=== PATIENT | female | born 1955 | race Caucasian/White ===

== ENCOUNTER → 2018-08-20 | Outpatient (CLI) | payer OTHER ==
--- NOTE | 2018-08-20 08:06 | EKG ---
[address] [address] ELECTROCARDIOGRAM REPORT Name: CESARCOLTON WARNER Room #: REG CLI [facility] [id number] ������������������ Admission: 08/20/18 ������������������ Attend Phys: Karan Godoy MD Discharge: ������������������ Date of : 51 Report #: [id number] ����������������������������������������������������������������� [id number] THIS REPORT FOR: //name// [facility] Test Date: 2018-08-20 Test Time: 07:06:18 Pat Name: COLTON GUERRERO Department: Room: Gender: F Beck Operator: BORA : 1955 Requested By: Karan Godoy Order Number: [id number] MD: Luis Quesada Measurements Intervals [place] Rate: 64 P: 52 SC: 182 QRS: 39 QRSD: 89 T: 23 QT: 375 QTc: 387 Interpretive Statements Sinus rhythm Borderline low voltage, extremity leads Minimal ST elevation, anterolateral leads No previous ECG available for comparison Electronically Signed On 08-20-2018 8:06:44 CDT by Luis Quesada [email or web address] ��������������������������������������������� <ELECTRONICALLY SIGNED> ���������������������������������������� By: Luis Quesada MD ��������������������������������������������� 08/20/18805 5 5 Luis Quesada MD /NABIL
== END ==
LOC: LITH 06:28
DX: N20.0 Calculus of kidney (principal); Z53.8 Procedure and treatment not carried out for other reasons
CPT/HCPCS: 50010